=== PATIENT | male | born 1960 | race Caucasian/White ===

== ENCOUNTER → 2018-12-23 | Outpatient (CLI) | payer OTHER | LOC: CAT 10:45 | DX: Z13.6 Encounter for screening for cardiovascular disorders (principal); I25.10 Atherosclerotic heart disease of native coronary artery without angina pectoris; E78.00 Pure hypercholesterolemia, unspecified ==

== ENCOUNTER → 2021-02-01 | Outpatient (CLI) | payer OTHER | LOC: ULTRA 09:55 → MRI 09:55 | PROVIDERS: ATTEND Nurse Practitioner | DX: R41.3 Other amnesia (principal) ==

== ENCOUNTER → 2021-02-05 | Outpatient (CLI) | payer OTHER ==
--- NOTE | 2021-02-05 13:37 | EXE ---
[facility] [place] [address] STRESS ECHOCARDIOGRAM Name: SUZIE GODOY Room #: [facility].#: [id number] Admission: 02/05/21 Attend Phys: SANKET Cano Discharge: Date of : 62 Report #: [id number] THIS REPORT FOR: cc: Cristi Clarke MD, Neal A. MD Lammoglia, Francisco J. MD ~ APPROVED REPORT Study performed: 02/05/2021 08:25:32 Exam: Stress Echocardiogram Indication: Episode of memory loss Patient Location: Out-Patient Stress Nurse: Maty Garzon RN Ht: 5 ft 6 in HR: 64 bpm BP: 128/78 mmHg Procedure The patient underwent an Exercise Stress Test using the Darren Protocol. Blood pressure, heart rate, and EKG were monitored. An Echocardiogram was performed by microbiological laboratory technician in four stages in quad fashion. At peak stress, four selected images were obtained and placed side by side with resting images for comparison. Stress Test Details Stress Test: Exercise stress testing was performed using a Darren protocol. HR Resting HR: 64 bpm Max Heart Rate (APMHR): 161 bpm Max HR Achieved: 173 bpm Target HR (85% APMHR): 136 bpm % of APMHR: 107 Recovery HR: 82 bpm HR response to stress: Normal HR response to stress BP Resting BP: 128/78 mmHg Max BP: 140/82 mmHg Recovery BP: 140/60 mmHg BP response to stress: Normal blood pressure response to stress. ECG Resting ECG: Sinus Rhythm Stress ECG: Sinus Tachycardia [facility] [address] [place] [address] STRESS ECHOCARDIOGRAM Name: SUZIE GODOY Room #: REG [facility].#: [id number] Admission: 02/05/21 Attend Phys: SANKET Cano Discharge: Date of : 62 Report #: [id number] ST Change: J-point depression with upsloping ST segments which did not fulfill criteria for ischemia Arrhythmia: None Recovery ECG: Sinus Rhythm Clinical Reason for Termination: Maximal effort, Completed protocol Stress Symptoms: Dyspnea Exercise duration: 6 min 52 sec Highest Stage Achieved: Stage 3: 3.4 mph at 14% grade. Exercise capacity: 9.50 METs Stress ECG Conclusion 1. Subjectively negative for ischemia except for development of exertional dyspnea 2. Electrocardiographic J-point depression upsloping ST segments did not fulfill l criteria for ischemia 3. Average functional capacity Pre-Stress Echo The resting Echocardiogram showed normal left ventricular contractility with an estimated Ejection Fraction of about 60-65%. The resting echocardiogram demonstrated normal wall motion in all wall segments. Post-Stress Echo The stress Echocardiogram showed normal left ventricular contractility with an estimated Ejection Fraction of about >70%. Compared to rest, there were no stress-induced wall motion abnormalities. Conclusion Clinical Response: Non-ischemic Exercise Capacity: Average Stress ECG Response: Non-ischemic Stress Echo Images: Non-ischemic 1. Low ischemic risk study Other Information Study Quality: Good [facility] [address] [place] [address] STRESS ECHOCARDIOGRAM Name: SUZIE GODOY Room #: [facility].#: [id number] Admission: 02/05/21 Attend Phys: SANKET Cano Discharge: Date of : 62 Report #: [id number] <Conclusion> 1. Low ischemic risk study <ELECTRONICALLY SIGNED> By: Golden Mejia MD 02/05/21 1337 36 Golden Mejia MD /INF
== END ==
LOC: CV 09:25
PROVIDERS: ATTEND Nurse Practitioner
DX: R41.3 Other amnesia (principal); R06.00 Dyspnea, unspecified

== ENCOUNTER → 2021-02-12 | Outpatient (CLI) | payer OTHER | LOC: CAT 08:54 | PROVIDERS: ATTEND Family Medicine | DX: G45.9 Transient cerebral ischemic attack, unspecified (principal) ==

== ENCOUNTER → 2021-02-12 | Outpatient (CLI) | payer OTHER | LOC: SJCVCIMAG 07:09 | PROVIDERS: ATTEND Family Medicine | DX: E78.5 Hyperlipidemia, unspecified (principal); Z86.73 Personal history of transient ischemic attack (TIA), and cerebral infarction without residual deficits ==

== ENCOUNTER → 2021-05-24 | Outpatient (CLI) | payer OTHER | END | disposition home or self-care (01) | LOC: CAT 10:10 | PROVIDERS: ATTEND Family Medicine | DX: R91.8 Other nonspecific abnormal finding of lung field (principal); I25.10 Atherosclerotic heart disease of native coronary artery without angina pectoris; R59.0 Localized enlarged lymph nodes ==